=== PATIENT | female | born 1985 | race Caucasian/White ===

== ENCOUNTER 2023-12-16 13:48 | Emergency (ER) | payer BC, OTHER, SELFPAY ==
--- NOTE | 2023-12-16 14:04 | ERPHSYRPT ---
- History of Present Illness Time Seen by Provider: 12/16/23 14:04 Historian: patient Exam Limitations: no limitations Physician History: This is a 36-year-old white female patient of nurse practitioner Camelia who was brought in by her by private vehicle secondary to upper abdominal pain. The pain was sudden in onset sharp bandlike anteriorly right upper quadrant, epigastric and left upper quadrant areas. It occurred approxi-15 minutes prior to arrival. It is eased up and has now improved to 4 out of 10 but is still present. Patient states she does not need any antiemetics or pain medicine at this time. Patient does have a history of gastroesophageal reflux disease. Timing/Duration: today Activities at Onset: none Quality: sharpness, tightness Abdominal Pain Onset Location: RUQ, LUQ, epigastric Pain Radiation: no radiation Severity of Pain-Max: moderate Severity of Pain-Current: mild Associated Symptoms: nausea, No chest pain, No diarrhea, No fever/chills, No vomiting Previous symptoms: no prior history Allergies/Adverse Reactions: Penicillins Allergy (Intermediate, Verified 12/16/23 14:02) Hives Sulfa (Sulfonamide Antibiotics) Allergy (Intermediate, Verified 12/16/23 14:02) Hives Home Medications: Ferrous Fumarate [Ferretts] 1 tab PO BID 12/16/23 [History] Loratadine 10 mg [Claritin 10 mg] 1 tab PO DAILY 12/16/23 [History] Omeprazole 1 cap PO DAILY 12/16/23 [History] Hx Tetanus, Diphtheria Vaccination/Date Given: Yes Hx Influenza Vaccination/Date Given: Yes Hx Pneumococcal Vaccination/Date Given: No Travel Risk - International Travel Have you traveled outside of the country in past 3 weeks: No - Coronavirus Screening Are you exhibiting any of the following symptoms?: No Close contact with a COVID-19 positive Pt in past 14-21 Days: No - Review of Systems Constitutional: No Symptoms Eyes: No Symptoms Ears, Nose, & Throat: No Symptoms Respiratory: No Symptoms Cardiac: No Symptoms Abdominal/Gastrointestinal: Abdominal Pain, Nausea, No Vomiting, No Diarrhea, No Constipation Genitourinary Symptoms: No Symptoms Musculoskeletal: No Symptoms Skin: No Symptoms Neurological: No Symptoms Psychological: No Symptoms Endocrine: No Symptoms Hematologic/Lymphatic: No Symptoms Immunological/Allergic: No Symptoms All Other Systems: Reviewed and Negative - Past Medical History Pertinent Past Medical History: No - Past Surgical History Past Surgical History: No - Social History Smoking Status: Never smoker Exposure to second hand smoke: No Drug Use: none Patient Lives Alone: No - Nursing Vital Signs Nursing Vital Signs: Initial Vital Signs Pulse Rate 97 H 12/16/23 14:01 Respiratory Rate 17 12/16/23 14:01 Blood Pressure 127/73 12/16/23 14:01 O2 Sat by Pulse Oximetry 99 12/16/23 14:01 Pain Scale Pain Intensity 0 - Physical Exam General Appearance: no apparent distress, alert, anxiety Eye Exam: PERRL/EOMI, eyes nml inspection Ears, Nose, Throat Exam: normal ENT inspection, moist mucous membranes Neck Exam: normal inspection, non-tender, supple, full range of motion Respiratory Exam: normal breath sounds, lungs clear, airway intact, No chest tenderness, No respiratory distress Cardiovascular Exam: regular rate/rhythm, normal heart sounds, normal peripheral pulses Gastrointestinal/Abdomen Exam: soft, normal bowel sounds, tenderness (Mild to palpation right upper quadrant, epigastric and left upper quadrant), guarding Pelvic Exam: not done Rectal Exam: not done Back Exam: normal inspection, normal range of motion, No CVA tenderness, No vertebral tenderness Extremity Exam: normal inspection, normal range of motion, pelvis stable Neurologic Exam: alert, oriented x 3, cooperative, care companion II-XII nml as tested, normal mood/affect, nml cerebellar function, nml station & gait, sensation nml Skin Exam: normal color, warm, dry - Course Nursing assessment & vital signs reviewed: Yes Ordered Tests: Active Orders 24 hr Category Date Time Status IV Insertion STAT Care 12/16/23 14:31 Active ABDOMEN AND PELVIS W CONTRAST [CT] Stat Exams 12/16/23 14:31 Completed AMYLASE Stat Lab 12/16/23 14:11 Completed CBC W DIFF Stat Lab 12/16/23 14:11 Completed CMP Stat Lab 12/16/23 14:11 Completed HCG QUALITATIVE, SERUM Stat Lab 12/16/23 14:11 Completed LIPASE Stat Lab 12/16/23 14:11 Completed UA W/RFX UR CULTURE Stat Lab 12/16/23 14:32 Completed Medication Summary Discontinued Medications Generic Name Dose Route Start Last Admin Trade Name Freq PRN Reason Stop Dose Admin Sodium Chloride 1,000 mls @ 999 mls/hr 12/16/23 14:31 12/16/23 15:40 Sodium Chloride 0.9% 1000 Ml IV 12/16/23 15:31 Infused .Q1H1M STA Infusion Sodium Chloride Confirm 12/16/23 14:38 Sodium Chloride 0.9% 1000 Ml Administered 12/16/23 14:39 Dose 1,000 mls @ ud .ROUTE .RUST-MED ONE Lab/Rad Data: Laboratory Result Diagrams 12/16/23 14:11 12/16/23 14:11 Laboratory Results 12/16/23 12/16/23 12/16/23 Range/Units 14:32 14:11 14:11 WBC (4.0-10.5) x10^3/uL RBC (4.1-5.4) x10^6/uL Hgb (12.0-16.0) g/dL Hct (35-47) % MCV (78-100) fL MCH (26-32) pg MCHC (32-36) g/dL RDW (11.5-14.0) % Plt Count (150-450) x10^3/uL MPV (7.5-11.0) fL Gran % (36.0-66.0) % Immature Gran % (Auto) (0.00-0.4) % Nucleat RBC Rel Count (0.00-0.1) % Eos # (Auto) (0-0.5) x10^3/uL Immature Gran # (Auto) (0.00-0.03) x10^3u/L Absolute Lymphs (auto) (1.0-4.6) x10^3/uL Absolute Monos (auto) (0.0-1.3) x10^3/uL Absolute Nucleated RBC (0.00-0.01) x10^3u/L Lymphocytes % (24.0-44.0) % Monocytes % (0.0-12.0) % Eosinophils % (0.00-5.0) % Basophils % (0.0-0.4) % Absolute Granulocytes (1.4-6.9) x10^3/uL Basophils # (0-0.4) x10^3/uL Sodium 139 (137-145) mmol/L Potassium 3.4 L (3.5-5.1) mmol/L Chloride 101 (98-107) mmol/L Carbon Dioxide 26 (22-30) mmol/L Anion Gap 15.3 H (5-15) MEQ/L BUN 9 (7-17) mg/dL Creatinine 0.67 (0.52-1.04) mg/dL Estimated GFR 114.0 ML/MIN Glucose 120 H (74-106) mg/dL Calcium 9.5 (8.4-10.2) mg/dL Total Bilirubin 1.10 (0.2-1.3) mg/dL AST 34 (14-36) U/L ALT 25 (0-35) U/L Alkaline Phosphatase 58 (38-126) U/L Serum Total Protein 7.7 (6.3-8.2) g/dL Albumin 4.7 (3.5-5.0) g/dL Amylase 70 (30-110) U/L Lipase 143 (23-300) U/L Serum HCG, Qual NEGATIVE (NEGATIVE) Urine Color Yellow (Yellow) Urine Appearance Clear (Clear) Urine pH 7.0 (4.6-8.0) Ur Specific [place] 1.010 (1.005-1.030) Urine Protein Negative (Negative) Urine Glucose (UA) Negative (Negative) mg/dL Urine Ketones Negative (Negative) Urine Blood Trace (Negative) Urine Nitrite Negative (Negative) Urine Bilirubin Negative (Negative) Urine Urobilinogen 0.2 (0.2) mg/dL Ur Leukocyte Esterase Negative (Negative) U Hyaline Cast (Auto) NONE SEEN (0-2) /LPF Urine Microscopic RBC 0-2 (0-5) /HPF Urine Microscopic WBC 0-2 (0-5) /HPF Ur Epithelial Cells Rare (None Seen) /HPF Urine Bacteria None Seen (None Seen) /HPF Urine Culture Reflexed NO (NO) 12/16/23 Range/Units 14:11 WBC 9.2 (4.0-10.5) x10^3/uL RBC 4.74 (4.1-5.4) x10^6/uL Hgb 14.4 (12.0-16.0) g/dL Hct 43.8 (35-47) % MCV 92.4 (78-100) fL MCH 30.4 (26-32) pg MCHC 32.9 (32-36) g/dL RDW 12.4 (11.5-14.0) % Plt Count 320 (150-450) x10^3/uL MPV 11.4 H (7.5-11.0) fL Gran % 63.9 (36.0-66.0) % Immature Gran % (Auto) 0.2 (0.00-0.4) % Nucleat RBC Rel Count 0.0 (0.00-0.1) % Eos # (Auto) 0.14 (0-0.5) x10^3/uL Immature Gran # (Auto) 0.02 (0.00-0.03) x10^3u/L Absolute Lymphs (auto) 2.74 (1.0-4.6) x10^3/uL Absolute Monos (auto) 0.41 (0.0-1.3) x10^3/uL Absolute Nucleated RBC 0.00 (0.00-0.01) x10^3u/L Lymphocytes % 29.7 (24.0-44.0) % Monocytes % 4.4 (0.0-12.0) % Eosinophils % 1.5 (0.00-5.0) % Basophils % 0.3 (0.0-0.4) % Absolute Granulocytes 5.88 (1.4-6.9) x10^3/uL Basophils # 0.03 (0-0.4) x10^3/uL Sodium (137-145) mmol/L Potassium (3.5-5.1) mmol/L Chloride (98-107) mmol/L Carbon Dioxide (22-30) mmol/L Anion Gap (5-15) MEQ/L BUN (7-17) mg/dL Creatinine (0.52-1.04) mg/dL Estimated GFR ML/MIN Glucose (74-106) mg/dL Calcium (8.4-10.2) mg/dL Total Bilirubin (0.2-1.3) mg/dL AST (14-36) U/L ALT (0-35) U/L Alkaline Phosphatase (38-126) U/L Serum Total Protein (6.3-8.2) g/dL Albumin (3.5-5.0) g/dL Amylase (30-110) U/L Lipase (23-300) U/L Serum HCG, Qual (NEGATIVE) Urine Color (Yellow) Urine Appearance (Clear) Urine pH (4.6-8.0) Ur Specific [place] (1.005-1.030) Urine Protein (Negative) Urine Glucose (UA) (Negative) mg/dL Urine Ketones (Negative) Urine Blood (Negative) Urine Nitrite (Negative) Urine Bilirubin (Negative) Urine Urobilinogen (0.2) mg/dL Ur Leukocyte Esterase (Negative) U Hyaline Cast (Auto) (0-2) /LPF Urine Microscopic RBC (0-5) /HPF Urine Microscopic WBC (0-5) /HPF Ur Epithelial Cells (None Seen) /HPF Urine Bacteria (None Seen) /HPF Urine Culture Reflexed (NO) - Progress Progress: improved Progress Note: 12/16/23 14:29 This patient's medical issue is 1 of moderate complexity. The level of complexity in the workup performed is based on review of the patient's past medical history, review of patient's medication list, review the patient drug allergy list, history present illness and physical findings on examination. The workup in this patient includes placement of intravenous line, infusion of normal saline solution, CBC, CMP, urinalysis, test, CT scan of the abdomen pelvis. 12/16/23 16:32 I interpreted the patient's laboratory data results. There is no evidence of any acute, emergent findings based on laboratory data results. CT scan of the abdomen pelvis was performed and interpreted by the radiologist. I reviewed the impression. I also discussed the findings with the patient. Patient has no evidence of free air or free fluid. There is a small hiatal hernia present. Noncontrasted small bowel and stomach loops appear nonobstructed. There is a right pelvic soft tissue mass. Pelvic ultrasound is recommended. We will attempt to schedule the patient for an outpatient pelvic ultrasound for next week. Counseled pt/family regarding: lab results, diagnosis, need for follow-up, rad results Medical Desision Making - Independent Historian Additional History obtained from: Spouse - Diagnostic Testing Diagnostic test were ordered, analyzed, and reviewed by me: Yes Radiological Interpretation: Reviewed by me, Teleradiologist Report - Risk of complications Low Risk: Low risk of morbidity from additional dx testing or treatment - Departure Departure Disposition: Home Clinical Impression: Upper abdominal pain, Abdominal or pelvic swelling, mass, or lump, right lower quadrant Condition: Stable Critical Care Time: No Referrals: CAMELIA,GIOVANNA ARELIS, PATIENT SCHEDULING MANAGER [Primary Care Provider] - Follow up/PCP as directed Additional Instructions: Drink plenty of fluids before advancing your diet. Avoid fatty greasy spicy foods. Call your primary care provider on 12/19/2023 to make arrangements for follow-up appointment in the next 3 to 5 days. You have a pelvic ultrasound scheduled for 8:30 AM on 12/19/2023. Check in at 8 AM at the radiology department counter. You need to drink 32 ounces of water 1 hour prior to the test time. Use Tylenol and ibuprofen for pain control.
[2023-12-16 14:12] VITALS: TEMP 97.5
[2023-12-16 14:37] LABS: Absolute Neutrophil Ct (ANC) 5.88 x10^3/uL (1.4-6.9); BASOPHIL % 0.3 % (0.0-0.4); Basophil (Absolute #) 0.03 x10^3/uL (0-0.4); Eosinophil % 1.5 % (0.00-5.0); Eosinophil (Absolute #) 0.14 x10^3/uL (0-0.5); Hematocrit 43.8 % (35-47); Hemoglobin 14.4 g/dL (12.0-16.0); IMMATURE GRAN # 0.02 x10^3u/L (0.00-0.03); IMMATURE GRAN % 0.2 % (0.00-0.4); Lymphocyte (Absolute #) 2.74 x10^3/uL (1.0-4.6); Lymphocytes % 29.7 % (24.0-44.0); Mean Cell Volume 92.4 fL (78-100); Mean Corpuscular Hemoglobin 30.4 pg (26-32); Mean Corpuscular Hgb Concent. 32.9 g/dL (32-36); Mean Platelet Volume 11.4 fL (7.5-11.0); Monocyte (Absolute #) 0.41 x10^3/uL (0.0-1.3); Monocytes % 4.4 % (0.0-12.0); Neutrophil % 63.9 % (36.0-66.0); Platelet Count 320 x10^3/uL (150-450); Red Blood Count 4.74 x10^6/uL (4.1-5.4); Red Cell Distribution Width 12.4 % (11.5-14.0); White Blood Count 9.2 x10^3/uL (4.0-10.5)
[2023-12-16] MEDS ORDERED: Sodium Chloride 0.9% 1000 ML 1,000 ML ONE (14:38)
[2023-12-16] MEDS: Sodium Chloride 0.9% 1000 ML 1,000 ML IV STA (14:40)
[2023-12-16 14:52] LABS: ALBUMIN 4.7 g/dL (3.5-5.0); ANION GAP 15.3 MEQ/L (5-15); BILIRUBIN,TOTAL 1.1 mg/dL (0.2-1.3); Calcium 9.5 mg/dL (8.4-10.2); Creatinine 1 0.67 mg/dL (0.52-1.04); Potassium 3.4 mmol/L (3.5-5.1); Total Protein 7.7 g/dL (6.3-8.2)
[2023-12-16 14:58] LABS: HCG SERUM TEST NEGATIVE (NEGATIVE)
[2023-12-16 15:12] LABS: Bacteria None Seen /HPF (None Seen); Epithelial Cells Rare /HPF (None Seen); Hyaline Casts NONE SEEN /LPF (0-2); RBC 0-2 /HPF (0-5); WBC 0-2 /HPF (0-5)
[2023-12-16 15:19] LABS: Appearance Clear (Clear); Bilirubin Negative (Negative); Blood Trace (Negative); Glucose, Urine Negative (Negative); Ketones Negative (Negative); Leukocyte Esterase Negative (Negative); Nitrite Negative (Negative); Protein,Urine Dip Negative (Negative); Urobilinogen 0.2 mg/dL (0.2)
[2023-12-16 15:24] LABS: ADD URINE CULTURE? NO (NO)
--- NOTE | 2023-12-16 16:29 | XRAY ---
Indication: Right upper quadrant pain. Multiple contiguous axial images obtained through the abdomen and pelvis using 80 cc Isovue 370 contrast. Comparison: None Lung bases clear. Heart not enlarged. Small hiatal hernia. Noncontrasted stomach and bowel loops appear nonobstructed with normal appendix. Right pelvis demonstrates mild heterogeneous soft tissue mass measuring at least 6.5 x 5.5 x 4.6 cm. 1.5 cm right adrenal adenoma. No free fluid/air. Remaining liver, gallbladder, pancreas, spleen, adrenal glands, kidneys, ureters, bladder, uterus, and aorta are unremarkable. No pathologic retroperitoneal lymphadenopathy. Impression: 1. Right pelvic soft tissue mass as detailed. Pelvic sonogram may yield further information. 2. Incidental small hiatal hernia and right adrenal adenoma.
[2023-12-16 16:48] VITALS: BP 118/78; PULSE 76; RESP 16; O2SAT 99
== END 2023-12-16 17:00 | disposition home or self-care (01) ==
LOC: ED 13:48
DX: R19.03 Right lower quadrant abdominal swelling, mass and lump (principal); R10.11 Right upper quadrant pain; R10.12 Left upper quadrant pain; R10.13 Epigastric pain; Z79.899 Other long term (current) drug therapy
CPT/HCPCS: 36000; 36415; 74177; 80053; 81001; 82150; 83690; 84703; 85025; 99284